=== PATIENT | female | born 1975 | race Two or more races ===

== ENCOUNTER 2017-03-21 14:27 | Emergency (ER) | payer MEDICAID, OTHER ==
[~2017-03-21] VITALS: Ht 149.9 cm; Wt 71.0 kg
[2017-03-21 15:58] LABS: HEMATOCRIT 36.6 % (34.6-47.8); HEMOGLOBIN 12.7 g/dL (11.7-16.4); WHITE BLOOD COUNT 11.1 x10^3/uL (3.4-10)
[2017-03-21] MEDS ORDERED: SODIUM CHLORIDE FLUSH 10ML SYR IVF ONE (16:00)
[2017-03-21 16:19] LABS: BLOOD UREA NITROGEN 5 mg/dL (7-18)
[2017-03-21 17:33] VITALS: BP 92/47
== END 2017-03-21 19:24 | disposition home or self-care (01) ==
LOC: ED 16:20
DX: O20.0 Threatened abortion (principal); Z3A.18 18 weeks gestation of pregnancy
CPT/HCPCS: 36415; 76805; 80048; 82040; 84702; 85025; 86901; 99285